=== PATIENT | male | born 1980 | race Caucasian/White ===

== ENCOUNTER 2018-07-08 13:05 | Emergency (ER) | payer SELFPAY ==
[2018-07-08] MEDS ORDERED: TORAdol 30 mg Injection IM ONE (13:24)
[2018-07-08] MEDS ORDERED: NORCO 5/325 MG PO ONE (13:24)
[2018-07-08] MEDS ORDERED: TORAdol 30 mg Injection ONE (13:30)
[2018-07-08] MEDS ORDERED: NORCO 5/325 MG ONE (13:31)
--- NOTE | 2018-07-08 13:40 | ERPHSYRPT ---
- History of Present Illness Time Seen by Provider: 07/08/18 13:08 Source: patient Exam Limitations: no limitations Patient Subjective Stated Complaint: carpal tunnel pain in bilateral arms Triage Nursing Assessment: Pt c/o of bilateral arm pain from carpal tunnel, hands and fingers swollen, does arm exercises, wears carpal tunnel braces, taking Gabapentin, reports that he hasn't slept in several days, vitals wnl, rates pain 8/10, scheduled for surgery on 08/02/2018 Physician History: patient with hx of bilateral carpal tunnel syndrome; scheduled for surg 08-02-18 ; continuing to work; meds and spliints not controlling pain and cant sleep- benadryl etc not helping; using splints and pillows and ice; steroids have helped with flareups in past; no other complaints; has had mri of neck and emg of arms; mri ok Occurred: last week Method of Injury: unknown (repetetive activity) Quality: aching Severity of Pain-Max: severe Severity of Pain-Current: severe Extremities Pain Location: wrist: bilateral Modifying Factors: Improves With: nothing (helping) Associated Symptoms: none Allergies/Adverse Reactions: amoxicillin Allergy (Verified 07/08/18 13:27) tramadol [From Ultram] Allergy (Verified 07/08/18 13:27) Home Medications: Gabapentin 400 mg [Neurontin 400 MG] 1,200 mg PO TID 07/08/18 [History] - Review of Systems Constitutional: No Symptoms Eyes: No Symptoms Ears, Nose, & Throat: No Symptoms Respiratory: No Cough, No Dyspnea, No Wheezing Cardiac: No Chest Pain, No Palpitations, No Syncope Abdominal/Gastrointestinal: No Abdominal Pain, No Nausea, No Vomiting, No Diarrhea Genitourinary Symptoms: No Symptoms Musculoskeletal: Joint Pain (wrists bilateral) Skin: No Symptoms Neurological: Parasthesia (arms and hands chronic), No Dizziness, No Headache Psychological: No Symptoms - Past Medical History Pertinent Past Medical History: No Other Medical History: arm pain - Past Surgical History Past Surgical History: No - Social History Smoking Status: Never smoker Exposure to second hand smoke: No Alcohol Use: Socially Drug Use: none Patient Lives Alone: Yes Significant Family History: no pertinent family hx - Nursing Vital Signs Nursing Vital Signs: Initial Vital Signs Temperature 98.8 F 07/08/18 13:13 Pulse Rate 80 07/08/18 13:13 Blood Pressure 130/86 07/08/18 13:13 O2 Sat by Pulse Oximetry 96 07/08/18 13:13 Pain Scale Pain Intensity 8 - Physical Exam General Appearance: moderate distress, alert, thin, other (pacing floor shaking hands- wrsits in splints) Shoulder Exam: normal inspection, non-tender, no evidence of injury, normal ROM Elbow/Forearm Exam: normal inspection, non-tender, no evidence of injury, normal ROM Wrist Exam: normal ROM (with discomfort), pain (bilatera), soft tissue tenderness (bilateral), swelling (bialteral), No normal inspection (puffy), No non-tender, No bone tenderness Hand Exam: normal inspection, non-tender, no evidence of injury, normal ROM Neuro/Tendon Exam: normal sensation, normal motor functions, normal tendon functions, responds to pain, no evidence tendon injury Mental Status Exam: alert, oriented x 3, cooperative Skin Exam: normal color, warm, dry, No rash, No cyanosis SpO2 Interpretation: normal SpO2: 96 O2 Delivery: Room Air - Course Nursing assessment & vital signs reviewed: Yes Ordered Tests: Active Orders 24 hr Category Date Time Status Re-Check Vital Signs STAT Care 07/08/18 13:24 Active Medication Summary Discontinued Medications Generic Name Dose Route Start Last Admin Trade Name Bib PRMaeve Reason Stop Dose Admin Hydrocodone Bitart/Acetaminophen 2 tab 07/08/18 13:24 07/08/18 13:33 [place] 5/325 Mg PO 07/08/18 13:25 2 tab SENT HOME W/ PATIENT ONE Administration Hydrocodone Bitart/Acetaminophen Confirm 07/08/18 13:31 [place] 5/325 Mg Administered 07/08/18 13:32 Dose 2 tab .ROUTE .STK-MED ONE Ketorolac Tromethamine 60 mg 07/08/18 13:24 07/08/18 13:34 Toradol 30 Mg Injection IM 07/08/18 13:25 60 mg STAT ONE Administration Ketorolac Tromethamine Confirm 07/08/18 13:30 Toradol 30 Mg Injection Administered 07/08/18 13:31 Dose 60 mg .ROUTE .STK-MED ONE - Progress Progress Note: 07/08/18 13:40 discussed treatment options; elected IM Toradol; refused IM steroids; will write rX for steroids and GI preventions; will give two cod pain meds for home for sleep tonight Counseled pt/family regarding: diagnosis, need for follow-up - Departure Time of Disposition: 13:41 Departure Disposition: Home Clinical Impression: bilateral carpal tunnel exacerbation, Wrist pain Condition: Stable Critical Care Time: No Instructions: Carpal Tunnel Syndrome Additional Instructions: continue to wear splints; elevate; rest wrists; continue home meds; follow up with hand surgeon as scheduled Follow-up with family doctor as directed. Call for appointment. Return if any problems. If you smoke please stop. Call or follow up with your family doctor for assistance if you need it to stop. Please wear your seatbelt when driving. Have a nice day. Thank you for allowing us to participate in your care today. :o) Dr Milad Keene Prescriptions: Methylprednisolone Packet [Medrol Dosepack] 4 mg PO UD #30 packet Omeprazole Magnesium [Prilosec] 10 mg PO QAM #10 [email or web address]
[2018-07-08 14:21] VITALS: BP 133/79; PULSE 77; O2SAT 97
== END 2018-07-08 13:55 | disposition home or self-care (01) ==
LOC: ED 13:05
DX: G56.03 Carpal tunnel syndrome, bilateral upper limbs (principal); M25.532 Pain in left wrist; M25.531 Pain in right wrist; Z79.899 Other long term (current) drug therapy
CPT/HCPCS: 96372; 99283; J1885; A9270-GY